=== PATIENT | male | born 1940 | race Caucasian/White ===

== ENCOUNTER → 2016-12-05 | Outpatient (CLI) | payer MEDICARE, BC ==
[~2016-12-05] MED LIST: ALLEGRA PO; ASPIRIN PO; AZOR 5/20 MG TA1 TAB PO; CELEXA PO; CRESTOR PO; HYTRIN PO; LOTREL; LOTREL 5/20 MG1 CAP PO; NEXIUM PO; REMICADE INFUSION; ZANTAC150 M1 PO; ZYLOPRIM PO
--- NOTE | ~2016-12-05 | TH ---
Unit #: [id number] #: [id number] Patient: ANTHONY WAITE [id number] [address] [place], [place] [address] [id number] MR#: [id number] NAME: ANTHONY WAITE. : 1940 SEX: M STUDY DATE/TIME: 12/05/2016 UNIT: [facility] ROOM: STUDY DESCRIPTION: Attending Physician: Mono Forbes M.D. Referring Physician: Mono Forbes M.D. Primary Care Physician: Anthony Lai M.D. CARDIOLOGY REPORT EXAM Stress nuclear and ECG combined. INDICATION Chest pain and coronary artery disease, status post stenting, with history of hypertension and dyslipidemia, as well as previous tobacco abuse. SUMMARY The patient was unable to exercise and received Lexiscan intravenously while at rest. Technetium 99 Cardiolite 11.21 and 32.6 mCi was given at rest and stress, respectively. Appropriate views were obtained. FINDINGS The rest and stress ECG showed no diagnostic ST shifts. Patient's heart rate increased from 65 to 87, and blood pressure decreased from 140/85 to 134/76. Perfusion images demonstrate moderately severe decrease in perfusion in the inferior wall from the base to the mid ventricle, improving with stress. There is intestinal artifact mainly during stress. Otherwise, perfusion is normal and equivalent during rest and stress. Planar images demonstrate no significant patient motion at rest or stress. There is no significant lung uptake, LV or RV enlargement. Summed stress score is 8 and summed difference score is 2. Changes involve primarily the inferolateral wall. This is likely artifact related. IMPRESSION 1. Lexiscan stress nuclear study shows no ischemia. 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 2. Normal ejection fraction with end-diastolic volume 97 mL and ejection fraction greater than 65%. 3. Lexiscan stress ECG is negative. 1. Dictated by... Sunny Malik M.D. ARABELLA/jermaine TD: 12/05/2016 15:18 JOB #: [id number] Unit #: [id number] #: [id number] Patient: ANTHONY WAITE CARDIOLOGY REPORT Page 1 of 1 X Sunny Malik MD CARDIOLOGY REPORT
== END | disposition home or self-care (01) ==
LOC: CNUC 11-14 08:30
DX: I25.10 Atherosclerotic heart disease of native coronary artery without angina pectoris (principal); I10 Essential (primary) hypertension
CPT/HCPCS: 78452; 93017; A9500; J2785